=== PATIENT | male | born 1995 | race Caucasian/White ===

== ENCOUNTER 2024-12-28 11:18 | Emergency (ER) | payer OTHER, SELFPAY ==
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
--- NOTE | ~2024-12-28 | XR_ITS ---
EXAMINATION: XR RIBS, LEFT CLINICAL INFORMATION: L rib pain COMPARISON: None available. TECHNIQUE: 3 views of the left ribs were obtained. FINDINGS: Lungs are clear. No consolidation, pneumothorax, or pleural effusion. The cardiomediastinal silhouette and pulmonary vasculature are normal. Osseous structures are unremarkable. Ribs are intact. No fractures are identified. XR/XR ribs LT min 3V w CXR1V IMPRESSION: Unremarkable examination. Electronically signed by: Trell Davis MD 12/28/2024 02:08 PM [facility]
[2024-12-28 11:31] VITALS: BP 141/72; PULSE 77; RESP 20; TEMP 37; O2SAT 98; BMI 20.5
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
[2024-12-28] MEDS: gadobutroL 7.5 ML VIAL IVPUSH (14:41)
[2024-12-28] MEDS: Acetaminophen 325 MG TABLET 975 MG PO (15:42)
[2024-12-28 15:47] VITALS: BP 136/75; PULSE 75; RESP 20; TEMP 37; O2SAT 98
[2024-12-28 15:49] VITALS: BP 136/75; PULSE 75; RESP 20; TEMP 37; O2SAT 98
== END 2024-12-28 15:48 | disposition home or self-care (01) ==
PROVIDERS: Emergency Provider Emergency Medicine; PCP Internal Medicine
DX: Z04.1 Encounter for examination and observation following transport accident (principal); R51.9 Headache, unspecified; R07.81 Pleurodynia; M54.2 Cervicalgia
CPT/HCPCS: 70450; 70553; 71101; 72125; 96374; 99284; 99285; A9585

== ENCOUNTER → 2024-12-28 11:37 | Outpatient (BNV) | payer OTHER, SELFPAY | PROVIDERS: Emergency Provider Emergency Medicine; PCP Internal Medicine; Visit Provider Radiology Diagnostic Radiology | DX: R51.9 Headache, unspecified (principal); M54.2 Cervicalgia; R07.82 Intercostal pain; Z04.3 Encounter for examination and observation following other accident | CPT/HCPCS: 70450; 70553; 71101; 72125 ==